=== PATIENT | male | born 1985 | race Caucasian/White ===

== ENCOUNTER 2020-09-16 20:34 | Emergency (ER) | payer SELFPAY ==
[~2020-09-16] VITALS: Ht 188 cm; Wt 113.6 kg
[2020-09-16] MEDS ORDERED: IV NORMAL SALINE 1000ML BAG 1,000 ML IV ONE (21:15)
[2020-09-16] MEDS ORDERED: LIDOCAINE 2% Multi-Dose 20 ML VIAL. IJ ONE (21:15)
--- NOTE | 2020-09-16 21:23 | PHYS DOC ---
Past Medical History Past Medical History: No Pertinent History Past Surgical History: Other Additional Past Surgical Histo: KNEE SURGERY Smoking Status: Current Every Day Smoker Alcohol Use: Occasionally General Adult EDM: Chief Complaint: INSECT BITE HPI: HPI: Patient is a 35 year old male who presents with right AC abscess that is almost egg sized with associated cellulitis up and down the forearm and wraps around to the dorsal arm. Denies fever, chills, nausea, vomiting, numbness or tingling, focal weakness. Patient rates his pain a 7 out of 10. Patient has a history of smoker and knee surgery. Patient admits to being a heroin addict. Review of Systems: Review of Systems: Constitutional: Denies fever or chills. [] Eyes: Denies change in visual acuity. [] HENT: Denies nasal congestion or sore throat. [] Respiratory: Denies cough or shortness of breath. [] Cardiovascular: Denies chest pain or edema. [] GI: Denies abdominal pain, nausea, vomiting, bloody stools or diarrhea. [] : Denies dysuria. [] Musculoskeletal: Denies back pain or joint pain. [] Integument: Denies rash. + Right AC abscess with cellulitis [] Neurologic: Denies headache, focal weakness or sensory changes. [] Endocrine: Denies polyuria or polydipsia. [] Lymphatic: Denies swollen glands. [] Psychiatric: Denies depression or anxiety. [] Heart Score: C/O Chest Pain: No Risk Factors: Risk Factors: DM, Current or recent (<one month) smoker, HTN, HLP, family history of CAD, obesity. Risk Scores: Score 0 - 3: 2.5% MACE over next 6 weeks - Discharge Home Score 4 - 6: 20.3% MACE over next 6 weeks - Admit for Clinical Observation Score 7 - 10: 72.7% MACE over next 6 weeks - Early Invasive Strategies Current Medications: Current Medications Medications (Trade) Dose Ordered Sig/Valerio Start Time Stop Time Status Last Admin Dose Admin Lidocaine HCl (Lidocaine 2% 20ml Vial) 20 ml 1X ONCE 09/16/20 21:15 09/16/20 21:16 DC Sodium Chloride 1,000 ml @ 1,000 mls/hr 1X ONCE 09/16/20 21:15 09/16/20 22:14 Allergies: Allergies: Allergies Coded Allergies Type Severity Reaction Last Updated Verified No Known Drug Allergies 09/16/20 No Physical Exam: PE: Constitutional: Well developed, well nourished, no acute distress, non-toxic appearance. [] HENT: Normocephalic, atraumatic, bilateral external ears normal, oropharynx moist, no oral exudates, nose normal. [] Eyes: PERRLA, EOMI, conjunctiva normal, no discharge. [] Neck: Normal range of motion, no tenderness, supple, no stridor. [] Cardiovascular:Heart rate regular rhythm, no murmur [] Lungs & Thorax: Bilateral breath sounds clear to auscultation [] Abdomen: Bowel sounds normal, soft, no tenderness, no masses, no pulsatile masses. [] Skin: Warm, dry, right arm cellulitis erythema, no rash. Right arm abscess [] Back: No tenderness, no CVA tenderness. [] Extremities: No tenderness, no cyanosis, no clubbing, ROM intact, no edema. [] Neurologic: Alert and oriented X 3, normal motor function, normal sensory function, no focal deficits noted. [] Psychologic: Affect normal, judgement normal, mood normal. [] Current Patient Data: Vital Signs: Vital Signs Date Time Temp Pulse Resp B/P (MAP) Pulse Ox O2 Delivery O2 Flow Rate FiO2 09/16/20 20:49 97.9 102 18 129/86 (100) 97 Room Air 97.9 EKG: EKG: [] Radiology/Procedures: Radiology/Procedures: [] Course & Med Decision Making: Course & Med Decision Making Pertinent Labs and Imaging studies reviewed. (See chart for details) See HPI. Alert and oriented x4. Ambulatory with a steady gait. Skin pink warm and dry. Afebrile. Speaks in full clear sentences. 1-2+ swelling. Center of the abscesses fluctuant. No drainage at this time. Radial pulse strong and present. Patient can make a full fist and bend the arm. Patient started on vancomycin. He has gotten a liter of normal saline. Patient to be admitted for IV antibiotics. I&D Location: Right AC abscess with cellulitis Anesthesia: 2% lidocaine Scalpel size: #11 Skin: Reddened with cellulitis Drainage: Moderate amount of purulent fluid Packing: None Patient tolerated the procedure well with no complications. The area was prepped and draped in usual sterile fashion. Area was cleaned with chloehexidine prior to procedure. Return for signs and symptoms of infection education given. Patient to return in 48 hours for wound recheck. [] Steve Disclaimer: Steve Disclaimer: This electronic medical record was generated, in whole or in part, using a voice recognition dictation system. 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
[2020-09-16] MEDS ORDERED: VANCOMYCIN PER PHARMACY MC PRN (21:45)
[2020-09-16] MEDS ORDERED: KETOROLAC 30 MG/ML VIAL. IVP ONE (21:45)
[2020-09-16 21:47] LABS: BASO # 0.1 x10^3/uL (0.0-0.2); BASO % 1 % (0-3); EOS # 0.2 x10^3/uL (0.0-0.7); EOS % 2 % (0-3); HEMATOCRIT 38.6 % (39.0-53.0); HEMOGLOBIN 13.2 g/dL (13.0-17.5); LYMPH # 1.6 x10^3/uL (1.0-4.8); LYMPH % 17 % (24-48); MEAN CORPUSCULAR HEMOGLOBIN 31 pg (25-35); MEAN CORPUSCULAR HGB CONC 34 g/dL (31-37); MEAN CORPUSCULAR VOLUME 90 fL (79-100); MONO % 11 % (0-9); NEUT # 6.2 x10^3/uL (1.8-7.7); NEUT % 68 % (31-73); PLATELET COUNT 209 x10^3/uL (140-400); RED BLOOD COUNT 4.28 x10^6/uL (4.30-5.70); RED CELL DISTRIBUTION WIDTH 12.6 % (11.5-14.5); WHITE BLOOD COUNT 9.1 x10^3/uL (4.0-11.0)
[2020-09-16 21:58] LABS: CALCIUM 8.4 mg/dL (8.5-10.1); CREATININE 0.9 mg/dL (0.7-1.3); POTASSIUM 4.5 mmol/L (3.5-5.1)
[2020-09-16] MEDS ORDERED: VANCOMYCIN 2 GM in IV NORMAL SALINE 500ML BAG 500 ML IV ONE (22:00)
[2020-09-16 22:03] LABS: ALBUMIN 3.6 g/dL (3.4-5.0); ALBUMIN/GLOBULIN RATIO 1.2 (1.0-1.7); TOTAL BILIRUBIN 0.5 mg/dL (0.2-1.0); TOTAL PROTEIN 6.5 g/dL (6.4-8.2)
[2020-09-16] MEDS ORDERED: fentaNYL PF VIAL 100 MCG/2 ML VIAL IV PRN (22:15)
[2020-09-16] MEDS ORDERED: ONDANSETRON PF 4 MG/2 ML VIAL. IVP ONE (22:30)
[2020-09-16] MEDS ORDERED: oxyCODONE/APAP 5/325 1 TAB TABLET PO ONE (23:15)
[2020-09-16] MEDS ORDERED: CLINDAMYCIN 600MG PREMIX 50 ML IV ONE (23:30)
[2020-09-16] MEDS ORDERED: diphenhydrAMINE HCL 25 MG CAPSULE PO ONE (23:30)
[2020-09-17 00:15] VITALS: BP 129/83
[2020-09-17] MEDS ORDERED: CLIN300C9 PO (01:03)
[2020-09-17] MEDS ORDERED: CLINDAMYCIN 600MG PREMIX 50 ML IV SCH (06:00)
[2020-09-17] MEDS ORDERED: VANCOMYCIN 1.75 GM in IV NORMAL SALINE 500ML BAG 500 ML IV SCH (10:00)
== END 2020-09-17 01:05 | disposition left against medical advice (07) ==
LOC: ER 20:34 → ED HOLD 23:13 → UNDOADMIN 23:13 → ER 09-17 01:05
DX: L02.413 Cutaneous abscess of right upper limb (principal); L03.113 Cellulitis of right upper limb; F17.200 Nicotine dependence, unspecified, uncomplicated
CPT/HCPCS: 10060; 36415; 80053; 83605; 85025; 87040; 96365; 96366; 96368; 96375; 99285; J1885; J2405; J3010; J3370; J3490; J7030; J7040; Q0163; 99284-25